=== PATIENT | male | born 1955 | race Caucasian/White ===

== ENCOUNTER → 2016-10-04 | Outpatient (CLI) | payer BC ==
--- NOTE | 2016-10-04 15:22 | Diagnostic Imaging Report ---
PROCEDURE: MRI lumbar spine. TECHNIQUE: Multiplanar, multisequence MRI of the lumbar spine was performed without contrast. DATE: October 04, 2016. COMPARISON: None. INDICATION: 61-year-old male, low back pain for 5 weeks with no known injury. FINDINGS: The alignment of the lumbar spine is unremarkable. There is no identified pars interarticularis defect. There is no compression deformity. There is no pronounced bone marrow edema. The visualized cord and conus medullaris is unremarkable and terminates at the L1-L2 level. There is minimal disc height loss at L4-L5. There is a benign T12 vertebral body hemangioma. L1-L2: There is no disc bulge. The facet joints and ligamentum flavum are unremarkable. There is no foraminal narrowing. There is no spinal canal stenosis. L2-L3: There is no disc bulge. The facet joints and ligamentum flavum are unremarkable. There is no foraminal narrowing. There is no spinal canal stenosis. L3-L4: There is no disc bulge. The facet joints and ligamentum flavum are unremarkable. There is no foraminal narrowing. There is no spinal canal stenosis. L4-L5: There is an annular tear and tiny broad-based posterior disc protrusion without nerve root contact. There are mild bilateral facet degenerative changes without ligamentum flavum hypertrophy. There is mild bilateral foraminal narrowing. There is no spinal canal stenosis. L5-S1: There is no disc bulge. The facet joints and ligamentum flavum are unremarkable. There is no foraminal narrowing. There is no spinal canal stenosis. IMPRESSION: L4-L5 annular tear and tiny broad-based posterior disc protrusion without nerve root contact. There are mild bilateral facet degenerative changes at this level with mild bilateral foraminal narrowing. Dictated by: Dictated on workstation # [id number]
== END ==
LOC: RAD 12:45
PROVIDERS: ATTEND Family Medicine
DX: M51.26 Other intervertebral disc displacement, lumbar region (principal); M47.896 Other spondylosis, lumbar region
CPT/HCPCS: 72148

== ENCOUNTER 2017-02-22 05:58 | Emergency (ER) | payer BC ==
[~2017-02-22] VITALS: Ht 182.9 cm; Wt 99.8 kg
[2017-02-22] MEDS ORDERED: KETOROLAC 30 MG/ML VIAL IVP ONE (06:15)
[2017-02-22] MEDS ORDERED: ONDANSETRON 4 MG/2 ML (SDV) Z0FRAN IVP ONE (06:15)
--- NOTE | 2017-02-22 06:21 | ED Abdominal Pain ---
General Stated Complaint: ABDOMINAL PAIN Source of Information: Patient, Spouse Exam Limitations: No Limitations History of Present Illness Time Seen By Provider: 06:14 Initial Comments Patient presents to ER by private conveyance with chief complaint of right flank and abdominal pain that started up yesterday about 1300 hrs. He is taken 1 tablet of Aleve that did not touch his pain. He says it severe, colicky, comes and goes and worse with movement. Says the pain is reminiscent of the last few time she's had kidney stones. He's had 5 or 6 kidney stones in the last 5 years. He's never had to have any help passing any of them and they usually pass within the day. He is having nausea and vomited a couple times overnight. He has no fever or chills or rash, diarrhea, constipation, cough, shortness of breath, chest pain. Allergies and Home Medications Allergies Coded Allergies: No Known Drug Allergies (Unverified , 12/21/10) Home Medications Cephalexin 500 Mg Capsule, 500 MG PO BID for 7 Days, #14 Ref 0 Prescribed by: CHELA SCHULER on 02/22/17 0652 Cyclobenzaprine HCl 5 Mg Tablet, (Reported) Ondansetron 4 Mg Tab.rapdis, 4 MG PO Q6H PRN for NAUSEA/VOMITING-1ST LINE, #14 Ref 0 Prescribed by: CHELA SCHULER on 02/22/1752 Oxycodone HCl/Acetaminophen 1 Each Tablet, 1-2 EACH PO Q6H PRN for PAIN- MODERATE TO SEVERE, #30 Ref 0 Prescribed by: CHELA SCHULER on 02/22/17 0652 Tamsulosin HCl 0.4 Mg Cap, 0.4 MG PO HS for 7 Days, #7 Ref 0 Prescribed by: CHELA SCHULER on 02/22/17 0652 Review of Systems Constitutional: No chills, No diaphoresis, No fever Respiratory: Denies Cough, Denies Shortness of Air Cardiovascular: Denies Chest Pain, Denies Lightheadedness Gastrointestinal: See HPI, Denies Abdomen Distended, Abdominal Pain, Denies Diarrhea, Nausea, Vomiting Genitourinary: Denies Burning, Denies Discharge Musculoskeletal: No back pain, No joint pain Skin: No pruritus, No rash Psychiatric/Neurological: Denies Headache, Denies Numbness Past Dqtrrat-Hndhiq-Quxzaa Hx Patient Social History Alcohol Use: Denies Use Recreational Drug Use: No Smoking Status: Never a Smoker Recent Foreign Travel: No Contact w/Someone Who Travel: No Physical Exam Vital Signs VS - Last 72 Hours, by Label 02/22/17 06:06 Temp 97.7 Pulse 85 Resp 20 B/P (MAP) 122/88 Pulse Ox 93 O2 Delivery Room Air Capillary Refill : General Appearance: WD/WN, no apparent distress HEENT: PERRL/EOMI, pharynx normal Respiratory: chest non-tender, lungs clear Cardiovascular: normal peripheral pulses, regular rate, rhythm Peripheral Pulses: 2+ Dorsalis Pedis (R), 2+ Left Dors-Pedis (L) Gastrointestinal: normal bowel sounds, soft, tenderness (suprapubic mild) Back: normal inspection, CVA tenderness (R) Neurologic/Psychiatric: alert, oriented x 3 Skin: normal color, warm/dry Progress/Results/Core Measures Results/Orders Lab Results Laboratory Tests Test 02/22/17 06:13 02/22/17 06:19 Range/Units Urine Color YELLOW Urine Clarity SLIGHTLY CLOUDY Urine pH 5 5-9 Urine Specific Sullivan 1.025 H 1.016-1.022 Urine Protein 2+ H NEGATIVE Urine Glucose (UA) NEGATIVE NEGATIVE Urine Ketones 2+ H NEGATIVE Urine Nitrite NEGATIVE NEGATIVE Urine Bilirubin NEGATIVE NEGATIVE Urine Urobilinogen NORMAL NORMAL MG/DL Urine Leukocyte Esterase NEGATIVE NEGATIVE Urine RBC (Auto) 2+ H NEGATIVE Urine RBC 0-2 /HPF Urine WBC 0-2 /HPF Urine Squamous Epithelial Cells 0-2 /HPF Urine Crystals PRESENT H /LPF Urine Amorphous Sediment MOD LIZZ URATES H /LPF Urine Bacteria TRACE /HPF Urine Casts NONE /LPF Urine Mucus MODERATE H /LPF Urine Culture Indicated NO White Blood Count 13.0 H 4.3-11.0 10^3/uL Red Blood Count 5.04 4.35-5.85 10^6/uL Hemoglobin 15.5 13.3-17.7 G/DL Hematocrit 45 40-54 % Mean Corpuscular Volume 89 80-99 FL Mean Corpuscular Hemoglobin 31 25-34 PG Mean Corpuscular Hemoglobin Concent 34 32-36 G/DL Red Cell Distribution Width 12.9 10.0-14.5 % Platelet Count 155 130-400 10^3/uL Mean Platelet Volume 11.0 H 7.4-10.4 FL Neutrophils (%) (Auto) 82 H 42-75 % Lymphocytes (%) (Auto) 10 L 12-44 % Monocytes (%) (Auto) 8 0-12 % Eosinophils (%) (Auto) 0 0-10 % Basophils (%) (Auto) 0 0-10 % Neutrophils # (Auto) 10.7 H 1.8-7.8 X 10^3 Lymphocytes # (Auto) 1.3 1.0-4.0 X 10^3 Monocytes # (Auto) 1.0 0.0-1.0 X 10^3 Eosinophils # (Auto) 0.0 0.0-0.3 10^3/uL Basophils # (Auto) 0.0 0.0-0.1 10^3/uL Sodium Level 140 135-145 MMOL/L Potassium Level 3.8 3.6-5.0 MMOL/L Chloride Level 108 H 98-107 MMOL/L Carbon Dioxide Level 19 L 21-32 MMOL/L Anion Gap 13 5-14 MMOL/L Blood Urea Nitrogen 21 H 7-18 MG/DL Creatinine 1.63 H 0.60-1.30 MG/DL Estimat Glomerular Filtration Rate 43 BUN/Creatinine Ratio 13 Glucose Level 144 H 70-105 MG/DL Calcium Level 9.3 8.5-10.1 MG/DL Total Bilirubin 0.9 0.1-1.0 MG/DL Aspartate Amino Transf (AST/SGOT) 22 5-34 U/L Alanine Aminotransferase (ALT/SGPT) 25 0-55 U/L Alkaline Phosphatase 69 40-136 U/L Total Protein 7.8 6.4-8.2 GM/DL Albumin 4.2 3.2-4.5 GM/DL My Orders Orders - CHELA SCHUELR Ct Abd/Pelvis Wo(Kidney Stone) (02/22/17 06:15) Abdomen/Kub 1view (02/22/17 06:15) Saline Lock/Iv-Start (02/22/17 06:15) Cbc With Automated Diff (02/22/17 06:15) Comprehensive Metabolic Panel (02/22/17 06:15) Ketorolac Injection (Toradol Injection) (02/22/17 06:15) Ondansetron Injection (Zofran Injectio (02/22/17 06:15) Ua Culture If Indicated (02/22/17 06:43) Medications Given in ED Current Medications Medications Dose Ordered Sig/Juan Route Start Time Stop Time Status Last Admin Dose Admin Ketorolac Tromethamine 15 mg ONCE ONCE IVP 02/22/17 06:15 02/22/17 06:17 DC 02/22/17 06:23 15 MG Ondansetron HCl 4 mg ONCE ONCE IVP 02/22/17 06:15 02/22/17 06:17 DC 02/22/17 06:23 4 MG Vital Signs/I&O Vital Sign - Last 12Hours 02/22/17 06:06 Temp 97.7 Pulse 85 Resp 20 B/P (MAP) 122/88 Pulse Ox 93 O2 Delivery Room Air Progress Note : Time: 07:01 Progress Note Patient was given a dose of Toradol and Zofran and his pain and nausea are now gone. In response to his elevated creatinine gave him a large glass of water which he drank and tolerated well. Have encouraged him to drink a lot of fluids and will encourage use of Percocet over NSAIDs for the time being. Diagnostic Imaging Diagonstic Imaging: Xray Plain Films/CT/US/NM/MRI: abdomen Comments Nonacute abdomen Reviewed: Reviewed by Me Diagonstic Imaging: CT Plain Films/CT/US/NM/MRI: abdomen, pelvis (without kidney stone study) Comments Right kidney with fat stranding and inflammation and hydroureter with inflammatory fat straining signs. Hydronephrosis. 2-4 mm stone seen at the ureterovesical junction in the right side. Reviewed: Reviewed by Me Departure Impression Impression: Primary Impression: Kidney stone on right side Disposition: HOME, SELF-CARE Condition: Stable Departure-Patient Inst. Decision time for Depature: 07:02 Referrals: POLI HOSKINS MD (PCP/Family) Primary Care Physician Patient Instructions: Kidney Stones (DC) Add. Discharge Instructions: Drink plenty of fluids. Take pain medicine 1-2 tablets every 6 hours as needed to control your pain. Caffeine is okay. Strain your urine and try and collect the stone to note that she passed it. Is not unusual to see a little bit of blood-tinged urine or have some pain for a few days after passing the stone as you're bladder and ureters are healing. Take the Flomax once a day until you've passed the stone. If you have nausea you can take one of the Zofran tablets every [address] under your tongue allowed to dissolve and absorbed through your mouth. Take the antibiotic by mouth twice a day with food to prevent infection until the stone passes or for 7 days. If you're unable to pass the stone you can follow-up with urology or your primary care physician Dr. Yoder can be reached at his office at [phone]. Scripts Ondansetron (Zofran Odt) 4 Mg Tab.rapdis 4 MG PO Q6H Y for NAUSEA/VOMITING-1ST LINE, #14 TAB 0 Refills Prov: CHELA SCHULER 02/22/17 Oxycodone HCl/Acetaminophen (Percocet 10-325 mg Tablet) 1 Each Tablet 1-2 EACH PO Q6H Y for PAIN-MODERATE TO SEVERE, #30 TAB 0 Refills Prov: CHELA SCHULER 02/22/17 Cephalexin (Keflex) 500 Mg Capsule 500 MG PO BID for 7 Days, #14 CAP 0 Refills Prov: CHELA SCHULER 02/22/17 Tamsulosin HCl (Flomax) 0.4 Mg Cap 0.4 MG PO HS for 7 Days, #7 CAP 0 Refills Prov: CHELA SCHULER 02/22/17 Work/School Note: Work Release Form Date Seen in the Emergency Department: Feb 22, 2017 Return to Work: Feb 23, 2017 Restrictions: No Restrictions Copy Copies To 1: POLI HOSKINS MD, TITUS J Feb 22, 2017 06:21
[2017-02-22 06:25] LABS: BASOPHILS % (AUTO) 0 % (0-10); EOSINOPHILS % (AUTO) 0 % (0-10); LYMPHOCYTES # (AUTO) 1.3 X 10^3 (1.0-4.0); LYMPHOCYTES % (AUTO) 10 % (12-44); MEAN CORPUSCULAR HEMOGLOBIN 31 PG (25-34); MEAN CORPUSCULAR HGB CONC 34 G/DL (32-36); MEAN CORPUSCULAR VOLUME 89 FL (80-99); MONOCYTES % (AUTO) 8 % (0-12); NEUTROPHILS # (AUTO) 10.7 X 10^3 (1.8-7.8); NEUTROPHILS % (AUTO) 82 % (42-75); PLATELET COUNT 155 10^3/uL (130-400); RED BLOOD COUNT 5.04 10^6/uL (4.35-5.85); RED CELL DISTRIBUTION WIDTH 12.9 % (10.0-14.5)
[2017-02-22] MEDS ORDERED: CYCL5TAB (06:42)
[2017-02-22 06:47] LABS: ALBUMIN 4.2 GM/DL (3.2-4.5); BILIRUBIN,TOTAL 0.9 MG/DL (0.1-1.0); CALCIUM 9.3 MG/DL (8.5-10.1); CREATININE SERUM 1.63 MG/DL (0.60-1.30); POTASSIUM 3.8 MMOL/L (3.6-5.0); TOTAL PROTEIN 7.8 GM/DL (6.4-8.2)
[2017-02-22 06:48] LABS: BILIRUBIN,URINE NEGATIVE (NEGATIVE); KETONES,URINE 2+ (NEGATIVE); LEUKOCYTE ESTERASE ,URINE NEGATIVE (NEGATIVE); NITRITE,URINE NEGATIVE (NEGATIVE); PH,URINE 5 (5-9); PROTEIN,URINE 2+ (NEGATIVE); UROBILINOGEN,URINE NORMAL (NORMAL)
[2017-02-22] MEDS ORDERED: ONDA4TAB8 PO (06:52)
[2017-02-22] MEDS ORDERED: TAMS0.4C98 PO (06:52)
[2017-02-22] MEDS ORDERED: CEPH-507 PO (06:52)
[2017-02-22] MEDS ORDERED: OXYC-202 PO (06:52)
[2017-02-22 06:59] LABS: SQUAMOUS EPITHELIAL CELL,UR 0-2 /HPF; WBC,URINE 0-2 /HPF
[2017-02-22] MEDS ORDERED: RX-ONDANSETRON 4 MG ODT (ZOFRAN) PPK #4 PO STA (07:02)
--- NOTE | 2017-02-22 07:04 | Diagnostic Imaging Report ---
Clinical indication: Patient right flank pain yesterday. Patient has history of kidney stones. Exam: KUB x-ray. Comparison: None. Findings: There is a roughly 2 mm calcification overlying the inferior pole of the right kidney. There are small calcifications seen involving the right and left sides of the pelvis, these may represent phleboliths versus distal ureteral stones.. There is a nonobstructed bowel gas pattern. There is no evidence of abdominal free air. There are small degenerative spurs involving the visualized lumbar spine. Impression: 1: Suspected small renal stone involving the inferior pole of the right kidney. 2: There are small rounded calcifications in the right and left sides of the pelvis. These may represent phleboliths versus a distal ureteral stone. CT scan would help better evaluate. Dictated by: Dictated on workstation # [id number]
[2017-02-22] MEDS ORDERED: RX-OXYCODONE/APAP 5-325 MG #4 TAB PK PO PRN (07:15)
[2017-02-22 07:30] VITALS: BP 118/84
--- NOTE | 2017-02-22 10:00 | Diagnostic Imaging Report ---
Clinical indication: Patient with right flank pain onset yesterday. Exam: CT exam of the abdomen and pelvis is performed without IV or oral contrast using stone protocol. Sagittal and coronal reformatted images are created. Comparisons: None. Findings: Visualized lung bases: There is mild bibasilar atelectasis. Liver: There is diffuse low-attenuation changes involving the liver likely representing diffuse fatty infiltration. There is relatively high density in the region of the gallbladder fossa involving the liver likely representing fatty sparing. Otherwise, liver is unremarkable. Gallbladder: Unremarkable. Pancreas: Unremarkable as visualized. Spleen: Unremarkable as visualized. Adrenal glands: Unremarkable. Kidneys/ ureters: There is a punctate nonobstructive stone involving the upper pole of the left kidney. There is a 2 mm nonobstructive stone involving the mid to inferior aspect of the right kidney. There is a 3 mm mildly obstructive stone within the distal right ureter which is a few centimeters from the right UVJ. There is associated mild right hydronephrosis and mild right perinephric and right periureteral fat stranding. There is a roughly 9 mm low-density exophytic lesion involving the midportion to inferior aspect of the left kidney. A cyst may be considered. Otherwise, both kidneys show no other significant abnormality. Aorta: Unremarkable as visualized. Intraabdominal/ retroperitoneal contents: Unremarkable. Intestines: There is a colonic diverticula involving the descending colon with no CT evidence of diverticulitis. Small hiatal hernia seen. Otherwise, the stomach, small bowel, and colon are unremarkable. Appendix: Unremarkable. Bladder: Unremarkable as visualized. Pelvic organs: Unremarkable as visualized. Extra abdominal/ pelvis regions: There is a small fat-containing left inguinal hernia. Abdominal wall: Unremarkable. Bones: There are small degenerative spurs involving the lower thoracic and lumbar spine. Impression: 1: There is a mildly obstructive 3 mm stone within the distal right ureter which is a few centimeters from the UVJ. There is associated mild right hydronephrosis and mild right periureteral fat stranding and perinephric fat stranding. 2: There are other nonobstructive stones within both kidneys. 3: The remainder of this exam shows no other concern for acute process. I agree with [employer] report. Dictated by: Dictated on workstation # [id number]
== END 2017-02-22 07:30 | disposition home or self-care (01) ==
LOC: EDUNIT# 05:58 → ER 05:59
DX: N20.0 Calculus of kidney (principal)
CPT/HCPCS: 36415; 74000; 74176; 80053; 81000; 85025; 96374; 96375

== ENCOUNTER → 2018-07-01 | Outpatient (CLI) | payer BC ==
[~2018-07-01] MED LIST: CEPH-507 PO; CYCL5TAB; ONDA4TAB8 PO; OXYC1TAB12 PO; TAMS0.4C98 PO
--- NOTE | 2018-07-01 17:04 | Diagnostic Imaging Report ---
INDICATION: Left shoulder pain. TIME OF EXAM: 02:33 p.m. FINDINGS: Three views of the left shoulder were obtained. Glenohumeral and acromioclavicular alignment is normal. Acromiohumeral space is normal. No fracture or dislocation is seen. IMPRESSION: No acute bony abnormality is detected. Dictated by: Dictated on workstation # [id number]
--- NOTE | 2018-07-01 17:05 | Diagnostic Imaging Report ---
INDICATION: Pain in the left arm and shoulder. TIME OF EXAM: 02:32 p.m. FINDINGS: Two views of the left humerus were obtained. Alignment at the shoulder and elbow is normal. No fracture or dislocation is seen. IMPRESSION: No acute bony abnormality is detected. Dictated by: Dictated on workstation # [id number]
== END ==
LOC: RAD 14:04
PROVIDERS: ATTEND Family Medicine
DX: M25.512 Pain in left shoulder (principal); M79.602 Pain in left arm
CPT/HCPCS: 73030; 73060